=== PATIENT | female | born 1990 | race African-American/Black ===

== ENCOUNTER 2018-04-06 15:45 | Emergency (ER) | payer SELFPAY | END 2018-04-06 17:01 | disposition home or self-care (01) | LOC: ERS 15:45 | DX: S66.126A Laceration of flexor muscle, fascia and tendon of right little finger at wrist and hand level, initial encounter (principal); F41.9 Anxiety disorder, unspecified; F17.210 Nicotine dependence, cigarettes, uncomplicated; W26.0XXA Contact with knife, initial encounter | CPT/HCPCS: 99282 ==